=== PATIENT | female | born 1970 | race Hispanic/Latino ===

== ENCOUNTER 2017-07-20 17:13 | Emergency (ER) | payer BC ==
--- NOTE | 2017-07-20 19:24 | RAD ---
THREE VIEWS RIGHT SHOULDER: Date: 07-20-17 History: Right shoulder pain/joint pain after seizure just prior to arrival. Comparison: 04-18-17 FINDINGS: While on the frontal projection there does not appear to be dislocation, one the scapular Y view, th e humeral head does appear to be anteriorly displaced with relation to the glenoid suggesting an ant erior shoulder dislocation. There is what appears to be Hill-Sachs deformity seen on prior studies. There are subchondral cystic changes related to right glenohumeral osteoarthropathy. The coracoclavi cular and acromioclavicular distances are within normal limits. IMPRESSION: Findings suggestive of either subluxation or anterior shoulder dislocation on the scapular Y view; a lthough, this is not well appreciated on the frontal projection. This finding was discussed with Dr. Ryan in the Emergency Department on 07-20-17 at 1809 hours. POS: [facility]
== END 2017-07-20 18:56 | disposition home or self-care (01) ==
LOC: ERS 17:13
DX: G40.909 Epilepsy, unspecified, not intractable, without status epilepticus (principal); F41.9 Anxiety disorder, unspecified; Z79.899 Other long term (current) drug therapy

== ENCOUNTER 2017-08-12 19:06 | Emergency (ER) | payer BC ==
[2017-08-12] MEDS ORDERED: Lorazepam 2 MG/ML VIAL ONE ×3 (20:07→20:53)
--- NOTE | 2017-08-12 20:11 | RAD ---
THREE VIEWS OF THE RIGHT SHOULDER 08/12/17 INDICATION: Right shoulder pain after seizure. COMPARISON: Prior exam dated 07/20/17. FINDINGS: There is anterior inferior subluxation/dislocation involving the humeral head. There is postprocedur al change consistent with prior [employer] and SLAP repair. No acute osseous abnormality is evident. Th ere is mild glenohumeral osteoarthrosis. IMPRESSION: Anterior inferior glenohumeral dislocation. POS: [facility]
[2017-08-12] MEDS ORDERED: Fentanyl 100 MCG/2 ML VIAL ONE (20:13)
--- NOTE | 2017-08-12 20:37 | RAD ---
TWO VIEWS OF THE RIGHT SHOULDER: 08/12/17 INDICATION: Status post reduction. COMPARISON: Prior exam dated 08/12/17 at 7:43 p.m. FINDINGS: There has been interval reduction of the glenohumeral dislocation. Postsurgical changes are stable. Right lung is clear. IMPRESSION: Reduction of the previously seen right glenohumeral shoulder dislocation. POS: [facility]
[2017-08-12] MEDS ORDERED: levETIRAcetam In NaCl (Iso-Os) 1,000 MG in Premix Bag 1 BAG IVPB SCH ×2 (21:15)
[2017-08-12] MEDS ORDERED: Acetaminophen 500 MG TAB ONE (21:16)
== END 2017-08-12 21:41 | disposition home or self-care (01) ==
LOC: ERS 19:06
DX: S43.014A Anterior dislocation of right humerus, initial encounter (principal); S43.034A Inferior dislocation of right humerus, initial encounter; G40.909 Epilepsy, unspecified, not intractable, without status epilepticus; F41.9 Anxiety disorder, unspecified; Z79.899 Other long term (current) drug therapy; X58.XXXA Exposure to other specified factors, initial encounter
CPT/HCPCS: 23650; 96365; 96375; 96376; J1953; J2060; J3010

== ENCOUNTER 2017-11-07 21:37 | Emergency (ER) | payer BC ==
[2017-11-07] MEDS ORDERED: Morphine 2 MG/ML SYRINGE ONE (22:43)
[2017-11-07] MEDS ORDERED: Ondansetron HCl/PF 4 MG/2 ML Vial ONE (22:43)
--- NOTE | 2017-11-07 23:16 | RAD ---
RIGHT SHOULDER FOUR VIEWS 11/07/17 HISTORY: Trauma. Pain. COMPARISON: 08/12/17. FINDINGS: There is anterior-inferior dislocation of the humeral head with respect to the glenoid. Nonspecific l ucencies involving the glenoid and chronic changes of the glenoid are noted. The visualized right ri bs are unremarkable. IMPRESSION: 1. Anterior-inferior dislocation. Post reduction films are recommended. 2. Chronic changes of the right glenoid. POS: [facility]
[2017-11-07] MEDS ORDERED: PROPOFOL 20 ML ONE (23:23)
[2017-11-08] MEDS ORDERED: Morphine 2 MG/ML SYRINGE ONE (00:44)
[2017-11-08] MEDS ORDERED: Fentanyl 100 MCG/2 ML VIAL ONE (01:12)
[2017-11-08] MEDS ORDERED: PROPOFOL 20 ML ONE ×2 (01:28→01:48)
--- NOTE | 2017-11-08 07:32 | RAD ---
RIGHT SHOULDER 3 VIEWS: Date 11/08/17 HISTORY: Post reduction. COMPARISON: Radiographs from prior day. FINDINGS: Satisfactory appearance post reduction right shoulder. There is a large Hill-Sachs deformity of the h umerus. IMPRESSION: Satisfactory position post reduction. POS: [facility]
--- NOTE | 2017-11-08 07:49 | RAD ---
RIGHT SHOULDER 3 VIEWS: Date: 11/08/17 HISTORY: Status post reduction. COMPARISON: Shoulder radiograph from same date. FINDINGS: There is anterior dislocation of the right shoulder. Hill-Sachs deformity is present with subchondral cyst or suture anchors of the anterior glenoid. IMPRESSION: Anterior shoulder dislocation. POS: [facility]
--- NOTE | 2017-11-08 08:04 | RAD ---
RIGHT SHOULDER 3 VIEWS: Date: 11/08/17 HISTORY: Post reduction. COMPARISON: Radiographs same day. FINDINGS: Satisfactory alignment post reduction. Hill-Sachs deformity. Subchondral cyst versus suture anchors o f the anterior glenoid. IMPRESSION: Satisfactory position post reduction. POS: [facility]
== END 2017-11-08 02:40 | disposition home or self-care (01) ==
LOC: ERS 21:37
DX: S43.014A Anterior dislocation of right humerus, initial encounter (principal); G40.909 Epilepsy, unspecified, not intractable, without status epilepticus; F41.9 Anxiety disorder, unspecified; W22.8XXA Striking against or struck by other objects, initial encounter
CPT/HCPCS: 23650; 96374; 96375; 96376; 99152; 99153; J2270; J2405; J2704; J3010